=== PATIENT | male | born 1950 | race Caucasian/White ===

== ENCOUNTER → 2017-07-20 | Outpatient (CLI) | payer OTHER ==
[2016-06-30 11:28] VITALS: BP 133/67
== END ==
LOC: LAB 09:31
PROVIDERS: ATTEND Internal Medicine Gastroenterology
DX: K64.0 First degree hemorrhoids (principal)
CPT/HCPCS: 82270

== ENCOUNTER → 2017-10-03 | Outpatient (CLI) | payer OTHER ==
[2016-06-30 11:28] VITALS: BP 133/67
--- NOTE | 2017-10-03 12:17 | RAD ---
Examination: Chest, PA and lateral views History: SOB, COPD Comparison reference 03/19/2016. Findings: Continued normal heart size with clear lungs and pleural spaces. There is a new twin lead p acemaker. No definite CHF, neoplasm or pneumonia. Impression: No acute disease. Interval pacemaker insertion. Reported By:
== END ==
LOC: RAD 11:41
PROVIDERS: ATTEND Internal Medicine Pulmonary Disease
DX: J44.1 Chronic obstructive pulmonary disease with (acute) exacerbation (principal); Z95.0 Presence of cardiac pacemaker
CPT/HCPCS: 71020

== ENCOUNTER 2022-11-21 19:24 | Inpatient (IN) ==
--- NOTE | 2022-11-21 20:03 | EKG ---
Test Reason : sob Blood Pressure : */* mmHG Vent. Rate : 82 BPM Atrial Rate : 82 BPM P-R Int : 232 ms QRS Dur : 76 ms QT Int : 384 ms P-R-T Axes : 84 -48 38 degrees QTc Int : 448 ms Sinus rhythm with 1st degree AV block with occasional premature ventricular complexes Left axis deviation Abnormal ECG No previous ECGs available Right bundle branch block Confirmed by Kristian Garcia ([id number]) on 11/24/2022 8:18:45 AM Referred By: Confirmed By: Kristian Garcia
[2022-11-21 20:06] LABS: BASOPHILS % (AUTO) 0.2 % (0.2-1.0); EOSINOPHILS % (AUTO) 0.1 % (0.9-2.9); HEMATOCRIT 40.2 % (42.0-54.0); HEMOGLOBIN 13.7 g/dL (13.5-18.0); LYMPHOCYTES # (AUTO) 1.5 X10^3/uL (1.3-2.9); LYMPHOCYTES % (AUTO) 6.7 % (21.0-51.0); MEAN CORPUSCULAR HGB CONC 34.1 g/dL (33.0-35.0); MEAN CORPUSCULAR VOLUME 90.8 fL (80.0-100.0); MEAN PLATELET VOLUME 9.6 fL (7.4-11.0); MONOCYTES # (AUTO) 2.3 x10^3/uL (0.3-0.8); MONOCYTES % (AUTO) 10.1 % (0.0-13.0); NEUTROPHILS % (AUTO) 82.9 % (42.0-75.0); RED BLOOD COUNT 4.43 X10^6/uL (4.7-6.0); RED CELL DISTRIBUTION WIDTH 14.2 % (11.6-16.5); WHITE BLOOD COUNT 22.9 X10^3/uL (3.6-10.0)
--- NOTE | 2022-11-21 20:06 | DR.SOBA ---
HPI Time Seen Time Seen by Provider: 11/21/22 20:04 Primary Care Physician Primary Care Physician: Dr. Calderon Complaints Chief Complaint:: Pt brought into the ER in a wheelchair by his . pt states he think he has pneumonia and he "cant hardly breath." pt states he has had some shortness of breath and soreness when he breaths x3 days. pt on 2L NC via oxygen tank and O2 saturation 88%. Self Treatment fo Chief Complaint: pt takes albuterol and Budesonide at home COVID-19 Coronavirus risk:travel/contact w/high risk person: No Has patient experienced Coronavirus symptoms: Yes Coronavirus symptoms experienced: Shortness of Breath Source History Provided: Patient and Family Member Mode of Arrival Mode of Arrival: Wheelchair Timing Onset of Chief Complaint: 11/18/22 PMH PMH Past Medical History: Yes Past Medical History: COPD, Dyslipidemia, Hypertension and DE Past Surgical History: Yes Past Surgical History Comment: pace maker and defiltrialtor, hernia repair Family History History of Family Medical Conditions: Yes Family Medical History: DE Social History Alcohol Use: None Do you use any recreational Drugs:: No Lives With: Spouse Lives Where: Home Travel Risk Coronavirus risk:travel/contact w/high risk person: No Has patient experienced Coronavirus symptoms: Yes Coronavirus symptoms experienced: Shortness of Breath Infectious screening Have you traveled outside the country in the last 6 months?: No Isolation: Standard PE Vital Signs Vitals: Temperature 98.0 F Pulse Rate 78 Respiratory Rate 26 Blood Pressure 116/55 O2 Sat by Pulse Oximetry 92 ROR Labs Reviewed Result Diagrams: 11/23/22 05:41 11/23/22 05:41 Laboratory: WBC 22.9 X10^3/uL (3.6-10.0) H 11/21/22 20:00 RBC 4.43 X10^6/uL (4.7-6.0) L 11/21/22 20:00 Hgb 13.7 g/dL (13.5-18.0) 11/21/22 20:00 Hct 40.2 % (42.0-54.0) L 11/21/22 20:00 MCV 90.8 fL (80.0-100.0) 11/21/22 20:00 MCH 31.0 pg (27.0-34.0) 11/21/22 20:00 MCHC 34.1 g/dL (33.0-35.0) 11/21/22 20:00 RDW 14.2 % (11.6-16.5) 11/21/22 20:00 Plt Count 155 X10^3/uL (150.0-450.0) 11/21/22 20:00 Plt Count Comment Adequate (ADEQUATE) 11/21/22 20:00 MPV 9.6 fL (7.4-11.0) 11/21/22 20:00 Neut % (Auto) 82.9 % (42.0-75.0) H 11/21/22 20:00 Lymph % (Auto) 6.7 % (21.0-51.0) L 11/21/22 20:00 [place] % (Auto) 10.1 % (0.0-13.0) 11/21/22 20:00 Eos % (Auto) 0.1 % (0.9-2.9) L 11/21/22 20:00 Baso % (Auto) 0.2 % (0.2-1.0) 11/21/22 20:00 Neut # (Auto) 19.0 x10^3/uL (2.2-4.8) H 11/21/22 20:00 Lymph # (Auto) 1.5 X10^3/uL (1.3-2.9) 11/21/22 20:00 [place] # (Auto) 2.3 x10^3/uL (0.3-0.8) H 11/21/22 20:00 Eos # (Auto) 0.0 x10^3/uL (0.0-0.2) 11/21/22 20:00 Baso # (Auto) 0.0 X10^3/uL (0.0-0.1) 11/21/22 20:00 Absolute Nucleated RBC 0.0 /100WBC 11/21/22 20:00 Total Counted 100 11/21/22 20:00 Neutrophils % (Manual) 85 % (39-76) H 11/21/22 20:00 Lymphocytes % (Manual) 9 % (13-43) L 11/21/22 20:00 Monocytes % (Manual) 6 % (4-9) 11/21/22 20:00 Plt Morphology Comment Normal (NORMAL) 11/21/22 20:00 RBC Morphology Normal (NORMAL) 11/21/22 20:00 Sample Site Lr 11/21/22 20:11 ABG pH 7.510 (7.35-7.45) H 11/21/22 20:11 ABG pCO2 34.0 mmHg (35.0-45.0) L 11/21/22 20:11 ABG pO2 53.0 mmHg (80.0-100.0) L 11/21/22 20:11 ABG HCO3 27.1 mmol/L (22-26) H 11/21/22 20:11 ABG O2 Saturation 90.0 % (90-100) 11/21/22 20:11 ABG Base Excess 4.2 mmol/L (-2.0-2.0) H 11/21/22 20:11 Taurus Test Pos 11/21/22 20:11 A-a Gradient 104.0 mmHg 11/21/22 20:11 FiO2 28.0 11/21/22 20:11 Blood Gas Comments Ney well ae 11/21/22 20:11 Sodium 136 mmol/L (136-145) 11/21/22 20:00 Corrected Sodium TNP 11/21/22 20:00 Potassium 3.8 mmol/L (3.5-5.1) 11/21/22 20:00 Chloride 100 mmol/L (98-107) 11/21/22 20:00 Carbon Dioxide 30.6 mmol/L (21-32) 11/21/22 20:00 BUN 19 mg/dL (7-18) H 11/21/22 20:00 Creatinine 1.16 mg/dL (0.70-1.30) 11/21/22 20:00 Est GFR (MDRD) Af Amer > 60 (>60) 11/21/22 20:00 Est GFR (MDRD) Non-Af > 60 (>60) 11/21/22 20:00 Glucose 97 mg/dL (65-99) 11/21/22 20:00 Calcium 8.3 mg/dL (8.5-10.1) L 11/21/22 20:00 Corrected Calcium 9.3 mg/dL (8.5-10.1) 11/21/22 20:00 Total Bilirubin 1.20 mg/dL (0.2-1.0) H 11/21/22 20:00 AST 17 Units/L (15-37) 11/21/22 20:00 ALT 21 Units/L (12-78) 11/21/22 20:00 Alkaline Phosphatase 62 Units/L (46-116) 11/21/22 20:00 Creatine Kinase 60 Units/L (39-308) 11/21/22 20:00 Troponin I High Sens 9.3 ng/L (4.0-60.0) 11/21/22 20:00 Total Protein 6.0 g/dL (6.4-8.2) L 11/21/22 20:00 Albumin 2.8 g/dL (3.4-5.0) L 11/21/22 20:00 Globulin 3.2 g/dL (2.5-4.5) 11/21/22 20:00 Albumin/Globulin Ratio 0.9 Ratio (1.1-2.1) L 11/21/22 20:00 SARS-CoV-2 (PCR) Negative (NEGATIVE) 11/21/22 19:50 Influenza Type A (PCR) Negative (NEGATIVE) 11/21/22 19:50 Influenza Type B (PCR) Negative (NEGATIVE) 11/21/22 19:50 RSV (PCR) Negative (NEGATIVE) 11/21/22 19:50 Opioid Opioid Risk Tool Age ([employer] box if 16-45): No History of Preadolescent Sexual Abuse: No Total: 0 Total Score Risk Category: Low Risk Copyright: Quincy GALVEZ predicting aberrant behaviors Discharge Plan Discharge Plan Patient Disposition: 09 ADMITTED INPATIENT Condition: Stable
[2022-11-21 20:16] LABS: ABG ALLEN TEST POS; ABG BASE EXCESS 4.2 mmol/L (-2.0-2.0); ABG HCO3 27.1 mmol/L (22-26)
[2022-11-21 20:20] LABS: ALANINE AMINOTRANSFERASE 21 Units/L (12-78); ALBUMIN 2.8 g/dL (3.4-5.0); ALKALINE PHOSPHATASE 62 Units/L (46-116); ASPARTATE AMINO TRANSFERASE 17 Units/L (15-37); BLOOD UREA NITROGEN 19 mg/dL (7-18); CALCIUM 8.3 mg/dL (8.5-10.1); CARBON DIOXIDE 30.6 mmol/L (21-32); CHLORIDE 100 mmol/L (98-107); COR CA(FOR HYPOALB) 9.3 mg/dL (8.5-10.1); CREATINE KINASE 60 Units/L (39-308); CREATININE 1.16 mg/dL (0.70-1.30); SODIUM 136 mmol/L (136-145); eGFR NON BLACK RACES > 60 (>60)
[2022-11-21] MEDS ORDERED: DUONEB 0.5 MG/3 MG (3 mL) NEB ONE ×3 (20:30→23:07)
--- NOTE | 2022-11-21 20:30 | RAD ---
HISTORYstates he thinks he has pneumonia and he "cant hardly breath", has had some sob and soreness when he breaths x3 days. pt on 2L NC via oxygen tank and O2 saturation 88%.STUDYCHEST, 1 VIEWCOMPARISONNone.TECHNIQUEA single frontal view of the chest was obtained.FINDINGSThere is a permanent pacemaker overlying the left chest wall with its proximal lead in the right atrium and distal lead in the right ventricle. The heart is normal in size. There is a right lower lobe interstitial infiltrate with reticulonodular changes.. There is no effusion. There is no pneumothorax. The osseous structures are intact.IMPRESSIONRight lower lobe interstitial infiltrate.Permanent pacemaker in situElectronically signed by: Trinidad Olivier (Nov 21, 2022 20:29:18)
[2022-11-21 20:31] LABS: PLATELET MORPHOLOGY COMMENT NORMAL (NORMAL)
[2022-11-21] MEDS ORDERED: SOLU-Medrol 125 MG VIAL ONE (20:31)
[2022-11-21] MEDS ORDERED: SOLU-Medrol 125 MG VIAL IVP ONE (20:41)
[2022-11-21] MEDS ORDERED: ROCEPHIN VIAL 1 GRAM 1 G in NS 100 ML IV 100 ML IV ONE (21:11)
[2022-11-21] MEDS ORDERED: NS 100 ML IV 100 ML ONE (21:12)
[2022-11-21] MEDS ORDERED: ROCEPHIN VIAL 1 GRAM ONE (21:12)
[2022-11-21] MEDS ORDERED: NS 1/2 1,000 ML IV 1,000 ML IV ONE ×2 (21:26)
[2022-11-21] MEDS: NS 1/2 1,000 ML IV 1,000 ML IV SCH (23:31)
[2022-11-22] MEDS ORDERED: DUONEB 0.5 MG/3 MG (3 mL) NEB SCH
[2022-11-22] MEDS: DUONEB 0.5 MG/3 MG (3 mL) NEB SCH ×6 (00:05→21:00)
[2022-11-22 06:09] LABS: BASOPHILS % (AUTO) 0.1 % (0.2-1.0); HEMATOCRIT 38.7 % (42.0-54.0); HEMOGLOBIN 13.2 g/dL (13.5-18.0); LYMPHOCYTES # (AUTO) 0.4 X10^3/uL (1.3-2.9); LYMPHOCYTES % (AUTO) 1.9 % (21.0-51.0); MEAN CORPUSCULAR HEMOGLOBIN 30.7 pg (27.0-34.0); MEAN CORPUSCULAR HGB CONC 34.1 g/dL (33.0-35.0); MEAN PLATELET VOLUME 10.2 fL (7.4-11.0); MONOCYTES # (AUTO) 0.4 x10^3/uL (0.3-0.8); MONOCYTES % (AUTO) 1.7 % (0.0-13.0); NEUTROPHILS # (AUTO) 20.5 x10^3/uL (2.2-4.8); NEUTROPHILS % (AUTO) 96.3 % (42.0-75.0); RED CELL DISTRIBUTION WIDTH 14.3 % (11.6-16.5); WHITE BLOOD COUNT 21.3 X10^3/uL (3.6-10.0)
[2022-11-22 06:13] LABS: ALANINE AMINOTRANSFERASE 19 Units/L (12-78); ALBUMIN 2.6 g/dL (3.4-5.0); ALKALINE PHOSPHATASE 62 Units/L (46-116); ASPARTATE AMINO TRANSFERASE 18 Units/L (15-37); BLOOD UREA NITROGEN 18 mg/dL (7-18); CALCIUM 8.6 mg/dL (8.5-10.1); CARBON DIOXIDE 27.1 mmol/L (21-32); CHLORIDE 100 mmol/L (98-107); COR CA(FOR HYPOALB) 9.7 mg/dL (8.5-10.1); COR NA(FOR HYPERGLY) 138 mmol/L (136-145); CREATININE 1.06 mg/dL (0.70-1.30); SODIUM 137 mmol/L (136-145); TOTAL PROTEIN 6.2 g/dL (6.4-8.2); eGFR NON BLACK RACES > 60 (>60)
[2022-11-22 07:36] LABS: PLATELET MORPHOLOGY COMMENT NORMAL (NORMAL)
[2022-11-22] MEDS: PULMICORT NEB TX 0.5 MG NEB SCH ×2 (08:25→21:00)
[2022-11-22] MEDS: VSL#3 PO SCH (08:36)
[2022-11-22] MEDS: ROBITUSSIN DM PO SCH ×4 (08:36→20:30)
[2022-11-22] MEDS ORDERED: LOVENOX INJ 40 MG SYR SC SCH (09:00)
[2022-11-22] MEDS: ALDACTONE TAB 25 MG PO SCH (10:55)
[2022-11-22] MEDS: ASPIRIN EC 81 MG PO SCH (10:55)
[2022-11-22] MEDS: CORDARONE TAB 200 MG PO SCH (10:55)
[2022-11-22] MEDS: ENTRESTO 24/26 MG TABLET PO SCH ×2 (10:56→20:32)
[2022-11-22] MEDS: COREG TAB 25 MG PO SCH ×2 (10:56→20:32)
[2022-11-22] MEDS: LEVAQUIN PREMIX IV 500 MG 500 MG/100 ML BAG IV SCH (10:57)
[2022-11-22] MEDS: LASIX PO SCH (10:57)
[2022-11-22] MEDS ORDERED: LOVENOX INJ 30 MG SYR SC SCH (11:00)
[2022-11-22] MEDS ORDERED: FORTAZ or TAZICEF VIAL INJ 1 G in NS 100 ML IV + SPIKE MINIBAG* 100 ML IV SCH (11:00)
[2022-11-22] MEDS ORDERED: PREDNISONE TAB 20 MG PO SCH (11:00)
[2022-11-22] MEDS ORDERED: STERILE WATER IRRIGATION IR ONE (12:22)
[2022-11-22] MEDS: FORTAZ or TAZICEF VIAL INJ 1 G in NS 100 ML IV 100 ML IV SCH ×2 (13:30→21:02)
[2022-11-22] MEDS: NS 1/2 1,000 ML IV 1,000 ML IV SCH (13:30)
--- NOTE | 2022-11-22 19:38 | DR.H&P ---
H&P - History & Physical for Day of: H&P Date: 11/21/22 - Chief Complaint Chief Complaint: SHORTNESS OF BREATH - History of Present Illness History of Present Illness: IS A 72 YEAR OLD PATIENT OF OURS. HE PRESENTED TO THE ER WITH COMPLAINTS OF SHORTNESS OF BREATH AND CHEST DISCOMFORT UPON INSPIRATION. HE REPORTS THAT HIS OXYGEN SATURATIONS WERE 88% AT HOME WHILE ON OXYGEN VIA NASAL CANNULA AT 2 LITERS/MINUTE. HIS SPOUSE REPORTS THAT HE HAS BEEN USING ALBUTEROL AND BUDESONIDE NEBULIZER TREATMENTS WITHOUT SIGNIFICANT IMPROVEMENT IN SYMPTOMS. HIS PMH INCLUDES: COPD, DYSLIPIDEMIA, HTN, HYPOTHYROIDISM, GERD, HI, PACEMAKER/DEFIBRILLATOR, AND HERNIA REPAIR. ON ARRIVAL TO THE ER, HIS VITALS WERE 98.0-84-26-88%(NC@2)-116/55. LABS WERE OBTAINED. WBC 22.9, RBC 4.43, HGB 13.7, HCT 40.2, PLT COUNT 155, SODIUM 136, POTASSIUM 3.8, CHLORIDE 100, CARBON DIOXIDE 30.6, BUN 19, CREATININE 1.16, GLUCOSE 97, CALCIUM 8.3, TOTAL BILI 1.20, AST 17, ALT 21, ALK PHOS 62, CREATINE KINASE 60, TROPONIN 9.3, TOTAL PROTEIN 6.0, ALBUMIN 2.8. AN ABG WAS OBTAINED. PH 7.510, PC02 34, P02 53, HC03 27.1, 02 SAT 90, BASE EXCESS 4.2, FI02 28.0. COVID, INFLUENZA, AND RSV NEGATIVE. A CHEST XRAY WAS OBTAINED AND REVEALED: Right lower lobe interstitial infiltrate. Permanent pacemaker in situ. EKG REVEALED: Sinus rhythm with 1st degree AV block with occasional premature ventricular complexes. Left axis deviation. HR 82 bpm. IN THE ER, HE WAS GIVEN A DUONEB X 1, SOLU-MEDROL 125MG IV X 1, ROCEPHIN 1G IV X 1, AND LOVENOX 40MG SC X 1 DOSE. HE WAS ADMITTED TO THE HOSPITAL INPATIENT STATUS FOR TREATMENT OF RIGHT LOWER LOBE PNEUMONIA AND COPD EXACERBATION. HE WAS STARTED ON NORMAL SALINE AT KVO, FORTAZ 1G IV Q8H, LEVAQUIN 500MG IV DAILY DUONEBS Q4H, PULMICORT NEBS BID, LOVENOX 30MG SC BID, PROBIOTICS DAILY, AND HIS HOME MEDICATIONS WERE RESUMED. HOME MEDICATIONS INCLUDE: AMIODARONE, ECOTRIN, BUSPIRONE, CARVEDILOL, LASIX, ROBITUSSIN DM, SYNTHROID, PRILOSEC, PRAVACHOL, PREDNISONE, ALDACTONE, AND ENTRESTO. HIS FAMILY IS INSTRUCTED TO BRING HIS CPAP FROM HOME. OTHERWISE, WE PLAN TO FOLLOW-UP WITH AM LABS AND CONTINUE TO MONITOR. TIME SPENT ON CLINICAL ASSESSMENT, REVIEWING LABS AND IMAGING, DECISION MAKING, AND DOCUMENTATION GREATER THAN 75 MINUTES. - Past Medical History Past Medical History: COPD, Dyslipidemia, GERD, Hypertension, HI - Past Surgical History Surgical History: Other Additional Surgical History: PACEMAKER/DEFIBRILLATOR, HERNIA REPAIR - Family History Family Medical History: HI - Social History Does patient currently use any type of tobacco product: No Have you used tobacco products in the last 12 months: No Type of Tobacco Use: None Does any household member use tobacco: No Alcohol Use: None Drug Use: None - Medications Home Medications: No Known Drug Allergies Allergy (Verified 05/28/20 11:05) CONTINUE taking the following medications amiodarone 200 mg tablet 200 mg PO DAILY 11/21/22 [History] aspirin 81 mg capsule 81 mg PO QDAY 11/21/22 [History] buspirone 7.5 mg tablet 7.5 mg PO BID 11/21/22 [History] carvedilol 25 mg tablet 25 mg PO BID 11/21/22 [History] furosemide 20 mg tablet 20 mg PO DAILY 11/21/22 [History] prednisone 20 mg tablet 50 mg PO DAILY 11/21/22 [History] sacubitril 97 mg-valsartan 103 mg tablet 0.5 tab PO BID 11/21/22 [History] spironolactone 25 mg tablet 25 mg PO DAILY 11/21/22 [History] levothyroxine 88 mcg tablet (Synthroid) 88 mcg PO DAILY 11/22/22 [History] - Review of Systems Constitutional: Weakness Eyes: No Symptoms Reported ENT: No Symptoms Reported Respiratory: Shortness of Breath, SOB with Excertion, Wheezing Cardiovascular: No Symptoms Reported Gastrointestinal: No Symptoms Reported Genitourinary: No Symptoms Reported Musculoskeletal: No Symptoms Reported Skin: No Symptoms Reported Neurological: No Symptoms Reported - Physical Exam Vital Signs: Temperature 97.8 F Pulse Rate [Left Radial] 86 Pulse Rate 73 Respiratory Rate 20 Blood Pressure [Right Arm] 120/79 Blood Pressure [Left Arm] 110/66 Blood Pressure 116/55 O2 Sat by Pulse Oximetry 91 Oriented: Normal Eyes: Normal Ear: Normal Nose: Normal Throat: Normal Respiratory: Wheezes Throughout Cardiovascular: Normal : Normal Auscultation: Bowel Sounds: Normal Palpation: Normal Tenderness: Normal Skin: Normal Musculoskeletal: Normal Psychiatric: Normal Mood Description: Calm Affect: Normal Speech Pattern: Clear - Assessment/Plan (1) Pneumonia Qualifiers: Pneumonia type: due to unspecified organism Laterality: right Lung location: lower lobe of lung Qualified Code(s): J18.9 - Pneumonia, unspecified organism Status: Acute Plan: ADMIT, SUPPLEMENTAL OXYGEN, NORMAL SALINE AT KVO, FORTAZ 1G IV Q8H, LEVAQUIN 500MG IV DAILY DUONEBS Q4H, PULMICORT NEBS BID, LOVENOX 30MG SC BID, PROBIOTICS DAILY, AND HIS HOME MEDICATIONS WERE RESUMED. (2) COPD exacerbation Status: Acute (3) HTN (hypertension) Qualifiers: Hypertension type: primary hypertension Qualified Code(s): I10 - Essential (primary) hypertension Status: Chronic (4) GERD (gastroesophageal reflux disease) Qualifiers: Esophagitis presence: esophagitis presence not specified Qualified Code(s): K21.9 - Gastro-esophageal reflux disease without esophagitis Status: Chronic - Allergies Allergies/Adverse Reactions: Allergies Allergy/AdvReac Type Severity Reaction Status Date / Time No Known Drug Allergies Allergy Verified 05/28/20 11:05
[2022-11-22] MEDS: LOVENOX INJ 30 MG SYR SC SCH (20:32)
[2022-11-22] MEDS: PRAVACHOL PO SCH (20:34)
[2022-11-22] MEDS ORDERED: BUSPAR PO SCH (21:00)
[2022-11-22] MEDS ORDERED: ROCEPHIN 1 GRAM IV PREMIX 1 G/50 ML IV.SOLN. IV SCH (21:00)
[2022-11-22] MEDS: BUSPAR PO SCH (21:01)
[2022-11-23] MEDS: DUONEB 0.5 MG/3 MG (3 mL) NEB SCH ×6 (00:45→20:50)
[2022-11-23] MEDS ORDERED: NS 1/2 1,000 ML IV 1,000 ML IV ONE (05:03)
--- NOTE | 2022-11-23 05:17 | RAD ---
HISTORYSOB; PNEUMONIA Relevant Clinical InformationSTUDYCHEST, 1 [id number] trachea is midline. Permanent pacing device. The cardiac silhouette is unremarkable. Mild bibasilar subsegmental atelectasis and/or infiltrates. The upper lung fournier are clear. No pneumothorax. The bony thorax is unremarkable.IMPRESSIONMild bibasilar subsegmental atelectasis and/or infiltrates. No significant change from previous 11/21/2022.Electronically signed by: Marcelo García (Nov 23, 2022 05:15:23)
[2022-11-23] MEDS: FORTAZ or TAZICEF VIAL INJ 1 G in NS 100 ML IV 100 ML IV SCH ×3 (05:59→21:22)
[2022-11-23] MEDS: NS 1/2 1,000 ML IV 1,000 ML IV SCH (05:59)
[2022-11-23] MEDS: SYNTHROID 88 mcg TAB PO SCH (06:13)
[2022-11-23 06:18] LABS: BASOPHILS # (AUTO) 0.1 X10^3/uL (0.0-0.1); BASOPHILS % (AUTO) 0.3 % (0.2-1.0); HEMATOCRIT 36.5 % (42.0-54.0); HEMOGLOBIN 12.5 g/dL (13.5-18.0); LYMPHOCYTES # (AUTO) 0.5 X10^3/uL (1.3-2.9); LYMPHOCYTES % (AUTO) 2.2 % (21.0-51.0); MEAN CORPUSCULAR HEMOGLOBIN 30.9 pg (27.0-34.0); MEAN CORPUSCULAR HGB CONC 34.2 g/dL (33.0-35.0); MEAN CORPUSCULAR VOLUME 90.5 fL (80.0-100.0); MEAN PLATELET VOLUME 10.8 fL (7.4-11.0); MONOCYTES # (AUTO) 0.8 x10^3/uL (0.3-0.8); MONOCYTES % (AUTO) 3.9 % (0.0-13.0); NEUTROPHILS # (AUTO) 19.8 x10^3/uL (2.2-4.8); NEUTROPHILS % (AUTO) 93.6 % (42.0-75.0); RED BLOOD COUNT 4.03 X10^6/uL (4.7-6.0); RED CELL DISTRIBUTION WIDTH 14.2 % (11.6-16.5); WHITE BLOOD COUNT 21.1 X10^3/uL (3.6-10.0)
[2022-11-23 06:45] LABS: ALANINE AMINOTRANSFERASE 25 Units/L (12-78); ALBUMIN 2.4 g/dL (3.4-5.0); ALKALINE PHOSPHATASE 67 Units/L (46-116); ASPARTATE AMINO TRANSFERASE 19 Units/L (15-37); BLOOD UREA NITROGEN 22 mg/dL (7-18); CALCIUM 8.4 mg/dL (8.5-10.1); CARBON DIOXIDE 27.9 mmol/L (21-32); CHLORIDE 102 mmol/L (98-107); COR CA(FOR HYPOALB) 9.7 mg/dL (8.5-10.1); COR NA(FOR HYPERGLY) 140 mmol/L (136-145); CREATININE 1.19 mg/dL (0.70-1.30); SODIUM 138 mmol/L (136-145); TOTAL PROTEIN 5.9 g/dL (6.4-8.2); eGFR NON BLACK RACES > 60 (>60)
[2022-11-23 07:08] LABS: BAND NEUTROPHILS % 5 % (0-10); METAMYELOCYTES % 1; PLATELET MORPHOLOGY COMMENT NORMAL (NORMAL)
[2022-11-23] MEDS: PULMICORT NEB TX 0.5 MG NEB SCH ×2 (09:15→20:50)
[2022-11-23] MEDS: ENTRESTO 24/26 MG TABLET PO SCH ×2 (09:19→21:26)
[2022-11-23] MEDS: LEVAQUIN PREMIX IV 500 MG 500 MG/100 ML BAG IV SCH (09:19)
[2022-11-23] MEDS: ASPIRIN EC 81 MG PO SCH (09:21)
[2022-11-23] MEDS: ROBITUSSIN DM PO SCH ×4 (09:21→21:23)
[2022-11-23] MEDS: LASIX PO SCH (09:21)
[2022-11-23] MEDS: COREG TAB 25 MG PO SCH ×2 (09:21→21:26)
[2022-11-23] MEDS: ALDACTONE TAB 25 MG PO SCH (09:21)
[2022-11-23] MEDS: PriLOSEC PO SCH ×3 (09:22→09:23)
[2022-11-23] MEDS: LOVENOX INJ 30 MG SYR SC SCH ×2 (09:22→21:23)
[2022-11-23] MEDS: VSL#3 PO SCH (09:22)
[2022-11-23] MEDS: BUSPAR PO SCH ×2 (09:23→21:25)
[2022-11-23] MEDS: CORDARONE TAB 200 MG PO SCH (09:28)
[2022-11-23] MEDS: SOLU-Medrol 125 MG VIAL IVP SCH ×2 (10:56→13:52)
--- NOTE | 2022-11-23 11:14 | PCM.PROG ---
Progress Note - Progress Note for Day of Date of Exam: 11/23/22 - Subjective Subjective: IS CURRENTLY INPATIENT STATUS FOR TREATMENT OF RIGHT LOWER LOBE PNEUMONIA AND COPD EXACERBATION. HE HAS A PMH OF HTN, GERD, DYSLIPIDEMIA, HYPOTHYROIDISM. TODAY, HE IS ALERT AND ORIENTED, SITTING UP IN BED ON MORNING ROUNDS. HE CONTINUES TO COMPLAIN OF COUGH AND SHORTNESS OF BREATH. HE DENIES SIGNIFICANT IMPROVEMENT SINCE ADMISSION. ON EXAMINATION, HEART IS REGULAR IN RATE AND RHYTHM. BILATERAL LUNGS ARE NOTED WITH RHONCHI AND EXPIRATORY WHEEZES THROUGHOUT. ABDOMEN IS DISTENDED, SOFT, AND NON-TENDER WITH NORMAL BOWEL SOUNDS NOTED IN ALL QUADRANTS. NO UPPER OR LOWER EXTREMITY EDEMA NOTED. HIS VITALS THIS MORNING WERE: 97.6-80-22-94%-146/70. LABS WERE OBTAINED. WBC 21.1, RBC 4.03, HGB 12.5, HCT 36.5, PLT COUNT 144, SODIUM 138, POTASSIUM 4.1, CHLORIDE 102, BUN 22, CREATININE 1.19, GLUCOSE 170, CALCIUM 8.4, AST 19, ALT 25, ALK PHOS 67, TOTAL PROTEIN 5.9, ALBUMIN 2.4. BLOOD AND SPUTUM CULTURES ARE PENDING. A CHEST XRAY WAS OBTAINED THIS MORNING AND REVEALED: The trachea is midline. Permanent pacing device. The cardiac silhouette is unremarkable. Mild bibasilar subsegmental atelectasis and/or infiltrates. The upper lung fournier are clear. No pneumothorax. The bony thorax is unremarkable. HE IS CURRENTLY RECEIVING NORMAL SALINE AT KVO, FORTAZ 1G IV Q8H, LEVAQUIN 500MG IV DAILY DUONEBS Q4H, PULMICORT NEBS BID, LOVENOX 30MG SC BID, PROBIOTICS DAILY, AND HIS HOME MEDICAT IONS WERE RESUMED. HOME MEDICATIONS INCLUDE: AMIODARONE, ECOTRIN, BUSPIRONE, CARVEDILOL, LASIX, ROBITUSSIN DM, SYNTHROID, PRILOSEC, PRAVACHOL, PREDNISONE, ALDACTONE, AND ENTRESTO. TODAY, WE WILL DISCONTINUE THE PREDNISONE. WE WILL ADD SOLU-MEDROL 125MG IV Q8H. WE WILL OBTAIN A CT OF THE CHEST WITH CONTRAST TO RULE OUT SARCOID, MALIGNANCY, OR ANY OTHER LUNG CHANGES. OTHERWISE, WE WILL FOLLOW-UP WITH AM LABS AND CHEST XRAY AND CONTINUE TO MONITOR. TIME SPENT ON CLINICAL ASSESSMENT, REVIWING LABS AND IMAGING, DECISION MAKING, AND DOCUMENTATION GREATER THAN 45 MINUTES. - Past Medical Family Social History Past Med/Fam/Surg Hx: No changes since H&P Allergies: Allergies No Known Drug Allergies Allergy (Verified 05/28/20 11:05) - Review of Systems ROS: No change since H&P - Vital Signs and I&O's Vital Signs: Temperature 97.6 F Pulse Rate [Left Radial] 80 Pulse Rate 91 Respiratory Rate 22 Blood Pressure [Right Arm] 120/79 Blood Pressure [Left Arm] 146/70 Blood Pressure 116/55 O2 Sat by Pulse Oximetry 91 Intake and Output: Intake & Output 11/20/22 11/21/22 11/22/22 11/23/22 11:59 11:59 11:59 11:59 Intake Total 810 / 810 2249 / 2249 Balance 810 / 810 2249 / 2249 - Physical Exam Oriented: Normal Eyes: Normal Ear: Normal Nose: Normal Throat: Normal Cardiovascular: Normal : Normal Auscultation: Bowel Sounds: Normal Palpation: Normal Tenderness: Normal Skin: Normal Musculoskeletal: Normal Psychiatric: Normal Mood Description: Calm Affect: Normal Speech Pattern: Clear, Appropriate - Laboratory and Diagnostics Result Diagrams: 11/23/22 05:41 11/23/22 05:41 Labs: 11/21/22 23:50 Sputum - Expectorated Sputum Sputum Culture - Preliminary 11/21/22 23:50 Sputum - Expectorated Sputum - Final Laboratory WBC 21.1 X10^3/uL (3.6-10.0) H 11/23/22 05:41 RBC 4.03 X10^6/uL (4.7-6.0) L 11/23/22 05:41 Hgb 12.5 g/dL (13.5-18.0) L 11/23/22 05:41 Hct 36.5 % (42.0-54.0) L 11/23/22 05:41 MCV 90.5 fL (80.0-100.0) 11/23/22 05:41 MCH 30.9 pg (27.0-34.0) 11/23/22 05:41 MCHC 34.2 g/dL (33.0-35.0) 11/23/22 05:41 RDW 14.2 % (11.6-16.5) 11/23/22 05:41 Plt Count 144 X10^3/uL (150.0-450.0) L 11/23/22 05:41 Plt Count Comment Decreased (ADEQUATE) 11/23/22 05:41 MPV 10.8 fL (7.4-11.0) 11/23/22 05:41 Neut % (Auto) 93.6 % (42.0-75.0) H 11/23/22 05:41 Lymph % (Auto) 2.2 % (21.0-51.0) L 11/23/22 05:41 [place] % (Auto) 3.9 % (0.0-13.0) 11/23/22 05:41 Eos % (Auto) 0.0 % (0.9-2.9) L 11/23/22 05:41 Baso % (Auto) 0.3 % (0.2-1.0) 11/23/22 05:41 Neut # (Auto) 19.8 x10^3/uL (2.2-4.8) H 11/23/22 05:41 Lymph # (Auto) 0.5 X10^3/uL (1.3-2.9) L 11/23/22 05:41 [place] # (Auto) 0.8 x10^3/uL (0.3-0.8) 11/23/22 05:41 Eos # (Auto) 0.0 x10^3/uL (0.0-0.2) 11/23/22 05:41 Baso # (Auto) 0.1 X10^3/uL (0.0-0.1) 11/23/22 05:41 Absolute Nucleated RBC 0.0 /100WBC 11/23/22 05:41 Total Counted 100 11/23/22 05:41 Neutrophils % (Manual) 83 % (39-76) H 11/23/22 05:41 Band Neutrophils % 5 % (0-10) 11/23/22 05:41 Lymphocytes % (Manual) 2 % (13-43) L 11/23/22 05:41 Monocytes % (Manual) 9 % (4-9) 11/23/22 05:41 Metamyelocytes % 1 11/23/22 05:41 Plt Morphology Comment Normal (NORMAL) 11/23/22 05:41 RBC Morphology Normal (NORMAL) 11/23/22 05:41 Sample Site Lr 11/21/22 20:11 ABG pH 7.510 (7.35-7.45) H 11/21/22 20:11 ABG pCO2 34.0 mmHg (35.0-45.0) L 11/21/22 20:11 ABG pO2 53.0 mmHg (80.0-100.0) L 11/21/22 20:11 ABG HCO3 27.1 mmol/L (22-26) H 11/21/22 20:11 ABG O2 Saturation 90.0 % (90-100) 11/21/22 20:11 ABG Base Excess 4.2 mmol/L (-2.0-2.0) H 11/21/22 20:11 Taurus Test Pos 11/21/22 20:11 A-a Gradient 104.0 mmHg 11/21/22 20:11 FiO2 28.0 11/21/22 20:11 Blood Gas Comments Ney well ae 11/21/22 20:11 Sodium 138 mmol/L (136-145) 11/23/22 05:41 Corrected Sodium 140 mmol/L (136-145) 11/23/22 05:41 Potassium 4.1 mmol/L (3.5-5.1) 11/23/22 05:41 Chloride 102 mmol/L (98-107) 11/23/22 05:41 Carbon Dioxide 27.9 mmol/L (21-32) 11/23/22 05:41 BUN 22 mg/dL (7-18) H 11/23/22 05:41 Creatinine 1.19 mg/dL (0.70-1.30) 11/23/22 05:41 Est GFR (MDRD) Af Amer > 60 (>60) 11/23/22 05:41 Est GFR (MDRD) Non-Af > 60 (>60) 11/23/22 05:41 Glucose 170 mg/dL (65-99) H 11/23/22 05:41 Calcium 8.4 mg/dL (8.5-10.1) L 11/23/22 05:41 Corrected Calcium 9.7 mg/dL (8.5-10.1) 11/23/22 05:41 Total Bilirubin 0.50 mg/dL (0.2-1.0) 11/23/22 05:41 AST 19 Units/L (15-37) 11/23/22 05:41 ALT 25 Units/L (12-78) 11/23/22 05:41 Alkaline Phosphatase 67 Units/L (46-116) 11/23/22 05:41 Creatine Kinase 60 Units/L (39-308) 11/21/22 20:00 Troponin I High Sens 9.3 ng/L (4.0-60.0) 11/21/22 20:00 Total Protein 5.9 g/dL (6.4-8.2) L 11/23/22 05:41 Albumin 2.4 g/dL (3.4-5.0) L 11/23/22 05:41 Globulin 3.5 g/dL (2.5-4.5) 11/23/22 05:41 Albumin/Globulin Ratio 0.7 Ratio (1.1-2.1) L 11/23/22 05:41 SARS-CoV-2 (PCR) Negative (NEGATIVE) 11/21/22 19:50 Influenza Type A (PCR) Negative (NEGATIVE) 11/21/22 19:50 Influenza Type B (PCR) Negative (NEGATIVE) 11/21/22 19:50 RSV (PCR) Negative (NEGATIVE) 11/21/22 19:50 - Plan (1) Pneumonia Status: Acute Qualifiers: Pneumonia type: due to unspecified organism Laterality: right Lung location: lower lobe of lung Qualified Code(s): J18.9 - Pneumonia, unspecified organism Plan: SUPPLEMENTAL OXYGEN, NORMAL SALINE AT KVO, FORTAZ 1G IV Q8H, LEVAQUIN 500MG IV DAILY, SOLU-MEDROL 125MG IV Q8H, DUONEBS Q4H, PULMICORT NEBS BID, LOVENOX 30MG SC BID, PROBIOTICS DAILY, AND HIS HOME MEDICATIONS WERE RESUMED. (2) COPD exacerbation Status: Acute (3) HTN (hypertension) Status: Chronic Qualifiers: Hypertension type: primary hypertension Qualified Code(s): I10 - Essential (primary) hypertension (4) GERD (gastroesophageal reflux disease) Status: Chronic Qualifiers: Esophagitis presence: esophagitis presence not specified Qualified Code(s): K21.9 - Gastro-esophageal reflux disease without esophagitis
--- NOTE | 2022-11-23 18:22 | CT ---
HISTORYSOB, COUGHSTUDYCHEST WITH CONCOMPARISONNoneTECHNIQUEMultiple CT axial images of the chest were obtained with IV contrast. Coronal and sagittal images were reconstructed. Dose reduction techniques included Automated Exposure Control (AEC) and adjustment of mA and kV.FINDINGSThe heart is normal in size. Atherosclerotic calcification is present in the coronary arteries.The pulmonary artery and aorta have a normal caliber. No mediastinal mass or significant lymphadenopathy.The thyroid has a normal size and configuration. No axillary mass or significant axillary lymphadenopathy is identified.There are focal areas of opacity in the lungs. This is a combination of nodular interstitial and linear opacity. Probably represents pneumonia and accounts for the changes seen on the recent chest radiograph. Since some of these findings are nodular, I recommend follow-up chest CT in 3-6 months.Trace bilateral effusions. No consolidation. No pneumothorax.There is a calcified gallstone. No inflammation around the gallbladder.Degenerative changes are present in the spine.IMPRESSION1. Findings consistent with bilateral predominantly basilar pneumonia2. CholelithiasisElectronically signed by: Jimmy Nieto (Nov 23, 2022 18:20:48)
[2022-11-23] MEDS: PRAVACHOL PO SCH (21:27)
[2022-11-24] MEDS: DUONEB 0.5 MG/3 MG (3 mL) NEB SCH ×6 (00:15→20:00)
[2022-11-24] MEDS: SOLU-Medrol 125 MG VIAL IVP SCH ×4 (02:12→21:09)
--- NOTE | 2022-11-24 05:09 | RAD ---
HISTORYPNEUMONIA, SOB Relevant Clinical InformationSTUDYCHEST, 1 [id number]/2023FINDINGSThe trachea is midline. Per to pacing device. The cardiac silhouette is unremarkable. Bibasilar subsegmental atelectasis and/or infiltrates. The bony thorax is unremarkable.IMPRESSIONStable portable chest.Electronically signed by: Marcelo García (Nov 24, 2022 05:08:33)
[2022-11-24] MEDS: FORTAZ or TAZICEF VIAL INJ 1 G in NS 100 ML IV 100 ML IV SCH ×3 (05:54→21:09)
[2022-11-24] MEDS: SYNTHROID 88 mcg TAB PO SCH (05:54)
[2022-11-24 05:55] LABS: BASOPHILS % (AUTO) 0.2 % (0.2-1.0); HEMATOCRIT 37.9 % (42.0-54.0); HEMOGLOBIN 12.7 g/dL (13.5-18.0); LYMPHOCYTES # (AUTO) 0.4 X10^3/uL (1.3-2.9); MEAN CORPUSCULAR HEMOGLOBIN 30.5 pg (27.0-34.0); MEAN CORPUSCULAR HGB CONC 33.5 g/dL (33.0-35.0); MEAN CORPUSCULAR VOLUME 91.2 fL (80.0-100.0); MEAN PLATELET VOLUME 10.6 fL (7.4-11.0); MONOCYTES # (AUTO) 0.4 x10^3/uL (0.3-0.8); MONOCYTES % (AUTO) 2.2 % (0.0-13.0); NEUTROPHILS # (AUTO) 17.3 x10^3/uL (2.2-4.8); NEUTROPHILS % (AUTO) 95.6 % (42.0-75.0); RED BLOOD COUNT 4.15 X10^6/uL (4.7-6.0); RED CELL DISTRIBUTION WIDTH 14.5 % (11.6-16.5); WHITE BLOOD COUNT 18.1 X10^3/uL (3.6-10.0)
[2022-11-24 06:16] LABS: ALANINE AMINOTRANSFERASE 27 Units/L (12-78); ALBUMIN 2.4 g/dL (3.4-5.0); ALKALINE PHOSPHATASE 60 Units/L (46-116); ASPARTATE AMINO TRANSFERASE 22 Units/L (15-37); BLOOD UREA NITROGEN 22 mg/dL (7-18); CARBON DIOXIDE 28.9 mmol/L (21-32); CHLORIDE 104 mmol/L (98-107); COR CA(FOR HYPOALB) 9.3 mg/dL (8.5-10.1); COR NA(FOR HYPERGLY) 141 mmol/L (136-145); CREATININE 1.19 mg/dL (0.70-1.30); SODIUM 139 mmol/L (136-145); TOTAL PROTEIN 5.9 g/dL (6.4-8.2); eGFR NON BLACK RACES > 60 (>60)
[2022-11-24 06:45] LABS: PLATELET MORPHOLOGY COMMENT NORMAL (NORMAL)
[2022-11-24] MEDS: NS 1/2 1,000 ML IV 1,000 ML IV SCH ×2 (07:08→21:09)
[2022-11-24] MEDS: VSL#3 PO SCH (08:49)
[2022-11-24] MEDS: ROBITUSSIN DM PO SCH ×4 (08:49→20:41)
[2022-11-24] MEDS: LEVAQUIN PREMIX IV 500 MG 500 MG/100 ML BAG IV SCH (08:49)
[2022-11-24] MEDS: ASPIRIN EC 81 MG PO SCH (08:49)
[2022-11-24] MEDS: LASIX PO SCH (08:49)
[2022-11-24] MEDS: PriLOSEC PO SCH (08:50)
[2022-11-24] MEDS: BUSPAR PO SCH ×2 (08:50→20:41)
[2022-11-24] MEDS: CORDARONE TAB 200 MG PO SCH (08:51)
[2022-11-24] MEDS: ALDACTONE TAB 25 MG PO SCH (08:51)
[2022-11-24] MEDS: COREG TAB 25 MG PO SCH ×2 (08:51→20:41)
[2022-11-24] MEDS: ENTRESTO 24/26 MG TABLET PO SCH ×2 (08:51→20:41)
[2022-11-24] MEDS: LOVENOX INJ 30 MG SYR SC SCH ×2 (08:53→20:42)
[2022-11-24] MEDS: PULMICORT NEB TX 0.5 MG NEB SCH ×2 (09:13→20:00)
[2022-11-24] MEDS: DIFLUCAN 200 MG IV PREMIX* 200 MG/100 ML BAG IV SCH (10:51)
[2022-11-24] MEDS: TUSSIONEX PENNKINETIC SUSP PO SCH ×2 (10:51→21:53)
--- NOTE | 2022-11-24 12:45 | PCM.PROG ---
Progress Note - Progress Note for Day of Date of Exam: 11/24/22 - Subjective Subjective: IS CURRENTLY INPATIENT STATUS FOR TREATMENT OF RIGHT LOWER LOBE PNEUMONIA AND COPD EXACERBATION. ADDITIONALLY, HE HAS A PMH OF HTN, GERD, DYSLIPIDEMIA, HYPOTHYROIDISM. TODAY, HE IS ALERT AND ORIENTED, SITTING UP IN BED ON MORNING ROUNDS. HE CONTINUES TO COMPLAIN OF COUGH AND SHORTNESS OF BREATH, BUT DOES REPORT IMPROVEMENT IN SYMPTOMS SINCE ADMISSION. ON EXAMINATION, HEART IS REGULAR IN RATE AND RHYTHM. BILATERAL LUNGS ARE NOTED WITH RHONCHI AND EXPIRATORY WHEEZES THROUGHOUT. ABDOMEN IS DISTENDED, SOFT, AND NON-TENDER WITH NORMAL BOWEL SOUNDS NOTED IN ALL QUADRANTS. NO UPPER OR LOWER EXTREMITY EDEMA NOTED. HIS VITALS THIS MORNING WERE: 98.0-72-22-92%-117/74. LABS WERE OBTAINED. WBC 18.1, RBC 4.15, HGB 12.7, HCT 37.9, PLT COUNT 153, SODIUM 139, POTASSIUM 4.4, CHLORIDE 104, BUN 22, CREATININE 1.19, GLUCOSE 166, CALCIUM 8.0, AST 22, ALT 27, ALK PHOS 60, TOTAL PROTEIN 5.9, ALBUMIN 2.4. BLOOD AND SPUTUM CULTURES ARE PENDING. SPUTUM CULTURE DOES REPORT GROWTH OF YEAST AND GRAM NEGATIVE RODS. A CHEST XRAY WAS OBTAINED THIS MORNING AND REVEALED: The trachea is midline. Per to pacing device. The cardiac silhouette is unremarkable. Bibasilar subsegmental atelectasis and/or infiltrates. The bony thorax is unremarkable. CHEST CT WITH CONTRAST WAS OBTAINED YESTERDAY AND REVEALED: 1. Findings consistent with bilateral predominantly basilar pneumonia 2. Cholelithiasis. HE IS CURRENTLY RECEIVING NORMAL SALINE AT O, FORTAZ 1G IV Q8H, LEVAQUIN 500MG IV DAILY DUONEBS Q4H, PULMICORT NEBS BID, LOVENOX 30MG SC BID, PROBIOTICS DAILY, ROBITUSSIN DM 10ML QID, SOLU-MEDROL 125MG IV Q8H, AND HIS HOME MEDICATIONS WERE RESUMED. HOME MEDICATIONS INCLUDE: AMIODARONE, ECOTRIN, BUSPIRONE, CARVEDILOL, LASIX, ROBITUSSIN DM, SYNTHROID, PRILOSEC, PRAVACHOL, PREDNISONE, ALDACTONE, AND ENTRESTO. TODAY, WE WILL ADD TUSSIONEX 5ML BID AND DIFLUCAN 200MG IV DAILY. OTHERWISE, WE WILL FOLLOW-UP WITH AM LABS AND CHEST XRAY AND CONTINUE TO MONITOR. TIME SPENT ON CLINICAL ASSESSMENT, REVIWING LABS AND IMAGING, DECISION MAKING, AND DOCUMENTATION GREATER THAN 45 MINUTES. - Past Medical Family Social History Past Med/Fam/Surg Hx: No changes since H&P Allergies: Allergies No Known Drug Allergies Allergy (Verified 05/28/20 11:05) - Review of Systems ROS: No change since H&P - Vital Signs and I&O's Vital Signs: Temperature 97.6 F Pulse Rate [Left Radial] 72 Pulse Rate 66 Respiratory Rate 18 Blood Pressure [Right Arm] 136/69 Blood Pressure [Left Arm] 138/85 Blood Pressure 116/55 O2 Sat by Pulse Oximetry 95 Intake and Output: Intake & Output 11/22/22 11/23/22 11/24/22 11/25/22 11:59 11:59 11:59 11:59 Intake Total 810 / 810 2249 / 2249 2800 / 2800 Balance 810 / 810 2249 / 2249 2800 / 2800 - Physical Exam Oriented: Normal Eyes: Normal Ear: Normal Nose: Normal Throat: Normal Cardiovascular: Normal : Normal Auscultation: Bowel Sounds: Normal Palpation: Normal Tenderness: Normal Skin: Normal Musculoskeletal: Normal Psychiatric: Normal Mood Description: Calm Affect: Normal Speech Pattern: Clear, Appropriate - Laboratory and Diagnostics Result Diagrams: 11/24/22 05:34 11/24/22 05:34 Labs: 11/21/22 23:50 Sputum - Expectorated Sputum Sputum Culture - Preliminary 11/21/22 23:50 Sputum - Expectorated Sputum - Final 11/21/22 21:36 Blood Blood Culture - Preliminary 11/21/22 21:23 Blood Blood Culture - Preliminary Laboratory WBC 18.1 X10^3/uL (3.6-10.0) H 11/24/22 05:34 RBC 4.15 X10^6/uL (4.7-6.0) L 11/24/22 05:34 Hgb 12.7 g/dL (13.5-18.0) L 11/24/22 05:34 Hct 37.9 % (42.0-54.0) L 11/24/22 05:34 MCV 91.2 fL (80.0-100.0) 11/24/22 05:34 MCH 30.5 pg (27.0-34.0) 11/24/22 05:34 MCHC 33.5 g/dL (33.0-35.0) 11/24/22 05:34 RDW 14.5 % (11.6-16.5) 11/24/22 05:34 Plt Count 153 X10^3/uL (150.0-450.0) 11/24/22 05:34 Plt Count Comment Adequate (ADEQUATE) 11/24/22 05:34 MPV 10.6 fL (7.4-11.0) 11/24/22 05:34 Neut % (Auto) 95.6 % (42.0-75.0) H 11/24/22 05:34 Lymph % (Auto) 2.0 % (21.0-51.0) L 11/24/22 05:34 [place] % (Auto) 2.2 % (0.0-13.0) 11/24/22 05:34 Eos % (Auto) 0.0 % (0.9-2.9) L 11/24/22 05:34 Baso % (Auto) 0.2 % (0.2-1.0) 11/24/22 05:34 Neut # (Auto) 17.3 x10^3/uL (2.2-4.8) H 11/24/22 05:34 Lymph # (Auto) 0.4 X10^3/uL (1.3-2.9) L 11/24/22 05:34 [place] # (Auto) 0.4 x10^3/uL (0.3-0.8) 11/24/22 05:34 Eos # (Auto) 0.0 x10^3/uL (0.0-0.2) 11/24/22 05:34 Baso # (Auto) 0.0 X10^3/uL (0.0-0.1) 11/24/22 05:34 Absolute Nucleated RBC 0.0 /100WBC 11/24/22 05:34 Total Counted 100 11/24/22 05:34 Neutrophils % (Manual) 96 % (39-76) H 11/24/22 05:34 Band Neutrophils % 5 % (0-10) 11/23/22 05:41 Lymphocytes % (Manual) 2 % (13-43) L 11/24/22 05:34 Monocytes % (Manual) 2 % (4-9) L 11/24/22 05:34 Metamyelocytes % 1 11/23/22 05:41 Plt Morphology Comment Normal (NORMAL) 11/24/22 05:34 RBC Morphology Normal (NORMAL) 11/24/22 05:34 Sample Site Lr 11/21/22 20:11 ABG pH 7.510 (7.35-7.45) H 11/21/22 20:11 ABG pCO2 34.0 mmHg (35.0-45.0) L 11/21/22 20:11 ABG pO2 53.0 mmHg (80.0-100.0) L 11/21/22 20:11 ABG HCO3 27.1 mmol/L (22-26) H 11/21/22 20:11 ABG O2 Saturation 90.0 % (90-100) 11/21/22 20:11 ABG Base Excess 4.2 mmol/L (-2.0-2.0) H 11/21/22 20:11 Taurus Test Pos 11/21/22 20:11 A-a Gradient 104.0 mmHg 11/21/22 20:11 FiO2 28.0 11/21/22 20:11 Blood Gas Comments Ney well ae 11/21/22 20:11 Sodium 139 mmol/L (136-145) 11/24/22 05:34 Corrected Sodium 141 mmol/L (136-145) 11/24/22 05:34 Potassium 4.4 mmol/L (3.5-5.1) 11/24/22 05:34 Chloride 104 mmol/L (98-107) 11/24/22 05:34 Carbon Dioxide 28.9 mmol/L (21-32) 11/24/22 05:34 BUN 22 mg/dL (7-18) H 11/24/22 05:34 Creatinine 1.19 mg/dL (0.70-1.30) 11/24/22 05:34 Est GFR (MDRD) Af Amer > 60 (>60) 11/24/22 05:34 Est GFR (MDRD) Non-Af > 60 (>60) 11/24/22 05:34 Glucose 166 mg/dL (65-99) H 11/24/22 05:34 Calcium 8.0 mg/dL (8.5-10.1) L 11/24/22 05:34 Corrected Calcium 9.3 mg/dL (8.5-10.1) 11/24/22 05:34 Total Bilirubin 0.50 mg/dL (0.2-1.0) 11/24/22 05:34 AST 22 Units/L (15-37) 11/24/22 05:34 ALT 27 Units/L (12-78) 11/24/22 05:34 Alkaline Phosphatase 60 Units/L (46-116) 11/24/22 05:34 Creatine Kinase 60 Units/L (39-308) 11/21/22 20:00 Troponin I High Sens 9.3 ng/L (4.0-60.0) 11/21/22 20:00 Total Protein 5.9 g/dL (6.4-8.2) L 11/24/22 05:34 Albumin 2.4 g/dL (3.4-5.0) L 11/24/22 05:34 Globulin 3.5 g/dL (2.5-4.5) 11/24/22 05:34 Albumin/Globulin Ratio 0.7 Ratio (1.1-2.1) L 11/24/22 05:34 SARS-CoV-2 (PCR) Negative (NEGATIVE) 11/21/22 19:50 Influenza Type A (PCR) Negative (NEGATIVE) 11/21/22 19:50 Influenza Type B (PCR) Negative (NEGATIVE) 11/21/22 19:50 RSV (PCR) Negative (NEGATIVE) 11/21/22 19:50 SARS-CoV-2 (PCR) Negative 11/22/22 10:05 - Plan (1) Pneumonia Status: Acute Qualifiers: Pneumonia type: due to unspecified organism Laterality: right Lung location: lower lobe of lung Qualified Code(s): J18.9 - Pneumonia, unspecified organism Plan: SUPPLEMENTAL OXYGEN, NORMAL SALINE AT KVO, FORTAZ 1G IV Q8H, LEVAQUIN 500MG IV DAILY, SOLU-MEDROL 125MG IV Q8H, DIFLUCAN 200MG IV DAILY, ROBITUSSIN, TUSSIONEX, DUONEBS Q4H, PULMICORT NEBS BID, LOVENOX 30MG SC BID, PROBIOTICS DAILY, AND HIS HOME MEDICATIONS WERE RESUMED. (2) COPD exacerbation Status: Acute (3) Infection due to yeast Status: Acute (4) HTN (hypertension) Status: Chronic Qualifiers: Hypertension type: primary hypertension Qualified Code(s): I10 - Essential (primary) hypertension (5) GERD (gastroesophageal reflux disease) Status: Chronic Qualifiers: Esophagitis presence: esophagitis presence not specified Qualified Code(s): K21.9 - Gastro-esophageal reflux disease without esophagitis
[2022-11-24] MEDS: PRAVACHOL PO SCH (20:41)
[2022-11-25] MEDS: DUONEB 0.5 MG/3 MG (3 mL) NEB SCH ×7 (00:17→20:30)
--- NOTE | 2022-11-25 04:39 | RAD ---
HISTORYRLL PNEUMONIA, SOB Relevant Clinical InformationSTUDYCHEST, 1 [id number] trachea is midline. Permanent pacing device the cardiac silhouette is unremarkable. Mild bibasilar subsegmental atelectasis. The bony thorax is unremarkable.IMPRESSIONStable portable chest.Electronically signed by: Marcelo García (Nov 25, 2022 04:37:58)
[2022-11-25] MEDS ORDERED: NS 1/2 1,000 ML IV 1,000 ML IV ONE (05:11)
[2022-11-25] MEDS: NS 1/2 1,000 ML IV 1,000 ML IV SCH ×2 (05:30→11:52)
[2022-11-25] MEDS: SOLU-Medrol 125 MG VIAL IVP SCH ×3 (05:30→22:02)
[2022-11-25] MEDS: FORTAZ or TAZICEF VIAL INJ 1 G in NS 100 ML IV 100 ML IV SCH ×3 (05:30→22:02)
[2022-11-25] MEDS: SYNTHROID 88 mcg TAB PO SCH (06:05)
[2022-11-25 06:23] LABS: BASOPHILS % (AUTO) 0.2 % (0.2-1.0); HEMATOCRIT 37.9 % (42.0-54.0); HEMOGLOBIN 12.7 g/dL (13.5-18.0); LYMPHOCYTES # (AUTO) 0.3 X10^3/uL (1.3-2.9); LYMPHOCYTES % (AUTO) 1.8 % (21.0-51.0); MEAN CORPUSCULAR HEMOGLOBIN 30.4 pg (27.0-34.0); MEAN CORPUSCULAR HGB CONC 33.4 g/dL (33.0-35.0); MEAN CORPUSCULAR VOLUME 90.9 fL (80.0-100.0); MEAN PLATELET VOLUME 10.7 fL (7.4-11.0); MONOCYTES # (AUTO) 0.4 x10^3/uL (0.3-0.8); MONOCYTES % (AUTO) 2.6 % (0.0-13.0); NEUTROPHILS # (AUTO) 15.3 x10^3/uL (2.2-4.8); NEUTROPHILS % (AUTO) 95.4 % (42.0-75.0); RED BLOOD COUNT 4.17 X10^6/uL (4.7-6.0)
[2022-11-25 06:41] LABS: ALANINE AMINOTRANSFERASE 25 Units/L (12-78); ALBUMIN 2.3 g/dL (3.4-5.0); ALKALINE PHOSPHATASE 57 Units/L (46-116); ASPARTATE AMINO TRANSFERASE 17 Units/L (15-37); BLOOD UREA NITROGEN 23 mg/dL (7-18); CHLORIDE 104 mmol/L (98-107); COR CA(FOR HYPOALB) 9.4 mg/dL (8.5-10.1); COR NA(FOR HYPERGLY) 140 mmol/L (136-145); CREATININE 1.07 mg/dL (0.70-1.30); SODIUM 138 mmol/L (136-145); TOTAL PROTEIN 5.7 g/dL (6.4-8.2); eGFR NON BLACK RACES > 60 (>60)
[2022-11-25 07:00] LABS: BAND NEUTROPHILS % 1 % (0-10); PLATELET MORPHOLOGY COMMENT NORMAL (NORMAL)
[2022-11-25] MEDS: PULMICORT NEB TX 0.5 MG NEB SCH ×2 (08:29→20:30)
[2022-11-25] MEDS: LEVAQUIN PREMIX IV 500 MG 500 MG/100 ML BAG IV SCH (08:51)
[2022-11-25] MEDS: ENTRESTO 24/26 MG TABLET PO SCH ×2 (08:52→20:34)
[2022-11-25] MEDS: BUSPAR PO SCH ×2 (08:52→20:30)
[2022-11-25] MEDS: ALDACTONE TAB 25 MG PO SCH (08:52)
[2022-11-25] MEDS: VSL#3 PO SCH (08:52)
[2022-11-25] MEDS: PriLOSEC PO SCH (08:52)
[2022-11-25] MEDS: COREG TAB 25 MG PO SCH ×2 (08:52→20:33)
[2022-11-25] MEDS: ROBITUSSIN DM PO SCH ×4 (08:52→20:35)
[2022-11-25] MEDS: CORDARONE TAB 200 MG PO SCH (08:52)
[2022-11-25] MEDS: LASIX PO SCH (08:52)
[2022-11-25] MEDS: ASPIRIN EC 81 MG PO SCH (08:53)
[2022-11-25] MEDS: LOVENOX INJ 30 MG SYR SC SCH ×2 (08:53→20:43)
[2022-11-25] MEDS: MILK OF MAGNESIA PO PRN ×2 (09:56→20:35)
[2022-11-25] MEDS: DIFLUCAN 200 MG IV PREMIX* 200 MG/100 ML BAG IV SCH (09:56)
[2022-11-25] MEDS: TUSSIONEX PENNKINETIC SUSP PO SCH ×2 (09:56→22:10)
[2022-11-25] MEDS: COLACE CAP 100 MG PO PRN ×2 (09:56→20:35)
[2022-11-25] MEDS ORDERED: STERILE WATER IRRIGATION IR ONE (17:20)
[2022-11-25] MEDS ORDERED: PULMICORT NEB TX 0.5 MG NEB ONE (19:17)
[2022-11-25] MEDS: PRAVACHOL PO SCH (20:34)
[2022-11-26] MEDS: DUONEB 0.5 MG/3 MG (3 mL) NEB SCH ×6 (00:20→21:00)
[2022-11-26] MEDS: SOLU-Medrol 125 MG VIAL IVP SCH ×3 (05:37→21:39)
[2022-11-26] MEDS: NS 1/2 1,000 ML IV 1,000 ML IV SCH ×2 (05:37→16:09)
[2022-11-26] MEDS: FORTAZ or TAZICEF VIAL INJ 1 G in NS 100 ML IV 100 ML IV SCH ×3 (05:37→21:40)
[2022-11-26] MEDS: SYNTHROID 88 mcg TAB PO SCH (05:38)
--- NOTE | 2022-11-26 05:52 | RAD ---
HISTORYSOBSTUDYCHEST, 1 [id number] opacity in the lung basis could be atelectasis or pneumonia. Not much change from yesterday.Middle and upper lungs are clear.Heart size is normal.Bones are unremarkable.Left subclavian ICD is present with leads in expected location.IMPRESSION1. Unchanged basilar atelectasis or pneumoniaElectronically signed by: Jimmy Nieto (Nov 26, 2022 05:51:25)
[2022-11-26 06:24] LABS: BASOPHILS % (AUTO) 0.1 % (0.2-1.0); HEMOGLOBIN 12.8 g/dL (13.5-18.0); LYMPHOCYTES # (AUTO) 0.2 X10^3/uL (1.3-2.9); MONOCYTES # (AUTO) 0.5 x10^3/uL (0.3-0.8); MONOCYTES % (AUTO) 3.2 % (0.0-13.0)
[2022-11-26 06:33] LABS: ALANINE AMINOTRANSFERASE 26 Units/L (12-78); ALBUMIN 2.3 g/dL (3.4-5.0); ALKALINE PHOSPHATASE 56 Units/L (46-116); ASPARTATE AMINO TRANSFERASE 20 Units/L (15-37); BLOOD UREA NITROGEN 27 mg/dL (7-18); CALCIUM 8.3 mg/dL (8.5-10.1); CARBON DIOXIDE 28.7 mmol/L (21-32); CHLORIDE 102 mmol/L (98-107); COR CA(FOR HYPOALB) 9.7 mg/dL (8.5-10.1); COR NA(FOR HYPERGLY) 138 mmol/L (136-145); CREATININE 1.08 mg/dL (0.70-1.30); LYMPHOCYTES % (AUTO) 1.2 % (21.0-51.0); MEAN CORPUSCULAR HEMOGLOBIN 30.9 pg (27.0-34.0); MEAN CORPUSCULAR HGB CONC 33.6 g/dL (33.0-35.0); MEAN CORPUSCULAR VOLUME 91.8 fL (80.0-100.0); MEAN PLATELET VOLUME 10.5 fL (7.4-11.0); NEUTROPHILS # (AUTO) 14.8 x10^3/uL (2.2-4.8); NEUTROPHILS % (AUTO) 95.5 % (42.0-75.0); RED BLOOD COUNT 4.14 X10^6/uL (4.7-6.0); RED CELL DISTRIBUTION WIDTH 14.1 % (11.6-16.5); SODIUM 136 mmol/L (136-145); TOTAL PROTEIN 5.6 g/dL (6.4-8.2); WHITE BLOOD COUNT 15.5 X10^3/uL (3.6-10.0); eGFR NON BLACK RACES > 60 (>60)
[2022-11-26 07:11] LABS: PLATELET MORPHOLOGY COMMENT NORMAL (NORMAL)
[2022-11-26] MEDS: VSL#3 PO SCH (08:34)
[2022-11-26] MEDS: DIFLUCAN 200 MG IV PREMIX* 200 MG/100 ML BAG IV SCH (08:34)
[2022-11-26] MEDS: LEVAQUIN PREMIX IV 500 MG 500 MG/100 ML BAG IV SCH (08:34)
[2022-11-26] MEDS: ENTRESTO 24/26 MG TABLET PO SCH ×2 (08:35→21:42)
[2022-11-26] MEDS: ASPIRIN EC 81 MG PO SCH (08:35)
[2022-11-26] MEDS: ROBITUSSIN DM PO SCH ×4 (08:35→21:39)
[2022-11-26] MEDS: PriLOSEC PO SCH (08:35)
[2022-11-26] MEDS: COREG TAB 25 MG PO SCH ×2 (08:35→21:41)
[2022-11-26] MEDS: LASIX PO SCH (08:36)
[2022-11-26] MEDS: ALDACTONE TAB 25 MG PO SCH (08:36)
[2022-11-26] MEDS: CORDARONE TAB 200 MG PO SCH (08:46)
[2022-11-26] MEDS: PULMICORT NEB TX 0.5 MG NEB SCH ×2 (08:50→21:00)
[2022-11-26] MEDS: BUSPAR PO SCH ×2 (09:06→21:41)
[2022-11-26] MEDS: LOVENOX INJ 30 MG SYR SC SCH ×2 (09:55→21:40)
[2022-11-26] MEDS: TUSSIONEX PENNKINETIC SUSP PO SCH ×2 (09:55→21:39)
[2022-11-26] MEDS: MILK OF MAGNESIA PO PRN (21:39)
[2022-11-26] MEDS: MIRALAX POWDER (1 DOSE 17 G) PO SCH (21:39)
[2022-11-26] MEDS: PRAVACHOL PO SCH (21:41)
[2022-11-26] MEDS: COLACE CAP 100 MG PO PRN (21:41)
[2022-11-27] MEDS: DUONEB 0.5 MG/3 MG (3 mL) NEB SCH ×6 (00:15→21:20)
[2022-11-27] MEDS ORDERED: NS 1/2 1,000 ML IV 1,000 ML IV ONE (00:52)
[2022-11-27] MEDS: NS 1/2 1,000 ML IV 1,000 ML IV SCH ×3 (01:37→21:04)
[2022-11-27 04:59] LABS: BASOPHILS % (AUTO) 0.2 % (0.2-1.0); HEMATOCRIT 38.4 % (42.0-54.0); LYMPHOCYTES # (AUTO) 0.2 X10^3/uL (1.3-2.9); LYMPHOCYTES % (AUTO) 1.1 % (21.0-51.0); MEAN CORPUSCULAR HEMOGLOBIN 30.8 pg (27.0-34.0); MEAN CORPUSCULAR HGB CONC 33.8 g/dL (33.0-35.0); MEAN CORPUSCULAR VOLUME 91.3 fL (80.0-100.0); MEAN PLATELET VOLUME 9.9 fL (7.4-11.0); MONOCYTES # (AUTO) 0.4 x10^3/uL (0.3-0.8); MONOCYTES % (AUTO) 2.4 % (0.0-13.0); NEUTROPHILS # (AUTO) 17.1 x10^3/uL (2.2-4.8); NEUTROPHILS % (AUTO) 96.3 % (42.0-75.0); RED CELL DISTRIBUTION WIDTH 14.1 % (11.6-16.5); WHITE BLOOD COUNT 17.7 X10^3/uL (3.6-10.0)
[2022-11-27 05:17] LABS: ALANINE AMINOTRANSFERASE 28 Units/L (12-78); ALBUMIN 2.4 g/dL (3.4-5.0); ALKALINE PHOSPHATASE 59 Units/L (46-116); ASPARTATE AMINO TRANSFERASE 21 Units/L (15-37); BLOOD UREA NITROGEN 27 mg/dL (7-18); CALCIUM 8.2 mg/dL (8.5-10.1); CHLORIDE 100 mmol/L (98-107); COR CA(FOR HYPOALB) 9.5 mg/dL (8.5-10.1); COR NA(FOR HYPERGLY) 136 mmol/L (136-145); CREATININE 1.05 mg/dL (0.70-1.30); SODIUM 134 mmol/L (136-145); TOTAL PROTEIN 5.5 g/dL (6.4-8.2); eGFR NON BLACK RACES > 60 (>60)
[2022-11-27] MEDS: FORTAZ or TAZICEF VIAL INJ 1 G in NS 100 ML IV 100 ML IV SCH ×3 (05:38→21:03)
[2022-11-27] MEDS: SOLU-Medrol 125 MG VIAL IVP SCH ×3 (05:38→21:04)
[2022-11-27] MEDS: SYNTHROID 88 mcg TAB PO SCH (05:44)
[2022-11-27 05:47] LABS: BAND NEUTROPHILS % 1 % (0-10); METAMYELOCYTES % 1; PLATELET MORPHOLOGY COMMENT NORMAL (NORMAL)
[2022-11-27] MEDS: VSL#3 PO SCH (08:37)
[2022-11-27] MEDS: ENTRESTO 24/26 MG TABLET PO SCH ×2 (08:37→20:55)
[2022-11-27] MEDS: LASIX PO SCH (08:38)
[2022-11-27] MEDS: CORDARONE TAB 200 MG PO SCH (08:39)
[2022-11-27] MEDS: ASPIRIN EC 81 MG PO SCH (08:41)
[2022-11-27] MEDS: ALDACTONE TAB 25 MG PO SCH (08:41)
[2022-11-27] MEDS: LEVAQUIN PREMIX IV 500 MG 500 MG/100 ML BAG IV SCH (08:41)
[2022-11-27] MEDS: COREG TAB 25 MG PO SCH ×2 (08:41→20:56)
[2022-11-27] MEDS: DIFLUCAN 200 MG IV PREMIX* 200 MG/100 ML BAG IV SCH (08:41)
[2022-11-27] MEDS: PriLOSEC PO SCH (08:41)
[2022-11-27] MEDS: LOVENOX INJ 30 MG SYR SC SCH ×2 (08:41→20:57)
[2022-11-27] MEDS: MILK OF MAGNESIA PO PRN ×2 (08:42→20:55)
[2022-11-27] MEDS: COLACE CAP 100 MG PO PRN ×2 (08:42→20:56)
[2022-11-27] MEDS: BUSPAR PO SCH ×2 (08:44→20:56)
[2022-11-27] MEDS: PULMICORT NEB TX 0.5 MG NEB SCH ×2 (09:00→21:20)
--- NOTE | 2022-11-27 09:59 | RAD ---
HISTORYLeft lower lobe pneumoniaSTUDYAP chestCOMPARISONFebruary 2022FINDINGSHeart size normal with stable twin lead pacemaker. Slight interval improvement in appearance of the lung bases with only minimal residual atelectasis. No new abnormality noted.IMPRESSIONSlight interval improvement with no additional abnormality identified since 1 day prior.Electronically signed by: JOAO ANDREWS (Nov 27, 2022 09:58:11)
[2022-11-27] MEDS: TUSSIONEX PENNKINETIC SUSP PO SCH ×2 (10:21→21:03)
[2022-11-27] MEDS: ROBITUSSIN DM PO SCH ×4 (10:22→20:55)
[2022-11-27] MEDS ORDERED: LINZESS PO ONE (20:42)
[2022-11-27] MEDS: MIRALAX POWDER (1 DOSE 17 G) PO SCH (20:55)
[2022-11-27] MEDS: PRAVACHOL PO SCH (20:56)
[2022-11-28] MEDS: DUONEB 0.5 MG/3 MG (3 mL) NEB SCH ×6 (00:42→21:35)
[2022-11-28] MEDS: FORTAZ or TAZICEF VIAL INJ 1 G in NS 100 ML IV 100 ML IV SCH ×3 (05:33→21:33)
[2022-11-28] MEDS: SYNTHROID 88 mcg TAB PO SCH (05:33)
[2022-11-28] MEDS: SOLU-Medrol 125 MG VIAL IVP SCH ×3 (05:33→21:21)
[2022-11-28 06:05] LABS: BASOPHILS % (AUTO) 0.1 % (0.2-1.0); HEMATOCRIT 36.4 % (42.0-54.0); HEMOGLOBIN 12.3 g/dL (13.5-18.0); LYMPHOCYTES # (AUTO) 0.2 X10^3/uL (1.3-2.9); LYMPHOCYTES % (AUTO) 1.3 % (21.0-51.0); MEAN CORPUSCULAR HEMOGLOBIN 30.7 pg (27.0-34.0); MEAN CORPUSCULAR HGB CONC 33.8 g/dL (33.0-35.0); MEAN CORPUSCULAR VOLUME 90.7 fL (80.0-100.0); MEAN PLATELET VOLUME 10.5 fL (7.4-11.0); MONOCYTES # (AUTO) 0.4 x10^3/uL (0.3-0.8); MONOCYTES % (AUTO) 2.5 % (0.0-13.0); NEUTROPHILS # (AUTO) 13.8 x10^3/uL (2.2-4.8); NEUTROPHILS % (AUTO) 96.1 % (42.0-75.0); RED BLOOD COUNT 4.01 X10^6/uL (4.7-6.0); RED CELL DISTRIBUTION WIDTH 13.7 % (11.6-16.5); WHITE BLOOD COUNT 14.3 X10^3/uL (3.6-10.0)
[2022-11-28 06:22] LABS: ALANINE AMINOTRANSFERASE 31 Units/L (12-78); ALBUMIN 2.1 g/dL (3.4-5.0); ALKALINE PHOSPHATASE 49 Units/L (46-116); ASPARTATE AMINO TRANSFERASE 19 Units/L (15-37); BLOOD UREA NITROGEN 25 mg/dL (7-18); CALCIUM 7.9 mg/dL (8.5-10.1); CARBON DIOXIDE 32.5 mmol/L (21-32); CHLORIDE 102 mmol/L (98-107); COR CA(FOR HYPOALB) 9.4 mg/dL (8.5-10.1); COR NA(FOR HYPERGLY) 137 mmol/L (136-145); CREATININE 1.02 mg/dL (0.70-1.30); SODIUM 135 mmol/L (136-145); TOTAL PROTEIN 4.9 g/dL (6.4-8.2); eGFR NON BLACK RACES > 60 (>60)
[2022-11-28 06:31] LABS: BAND NEUTROPHILS % 2 % (0-10)
[2022-11-28 06:32] LABS: PLATELET MORPHOLOGY COMMENT NORMAL (NORMAL)
[2022-11-28] MEDS: LEVAQUIN PREMIX IV 500 MG 500 MG/100 ML BAG IV SCH (08:31)
[2022-11-28] MEDS: CORDARONE TAB 200 MG PO SCH (08:32)
[2022-11-28] MEDS: DIFLUCAN 200 MG IV PREMIX* 200 MG/100 ML BAG IV SCH (08:32)
[2022-11-28] MEDS: ENTRESTO 24/26 MG TABLET PO SCH ×2 (08:33→21:23)
[2022-11-28] MEDS: ASPIRIN EC 81 MG PO SCH (08:33)
[2022-11-28] MEDS: LOVENOX INJ 30 MG SYR SC SCH ×2 (08:33→21:25)
[2022-11-28] MEDS: ALDACTONE TAB 25 MG PO SCH (08:33)
[2022-11-28] MEDS: ROBITUSSIN DM PO SCH ×4 (08:33→21:25)
[2022-11-28] MEDS: BUSPAR PO SCH ×2 (08:34→21:28)
[2022-11-28] MEDS: PriLOSEC PO SCH (08:34)
[2022-11-28] MEDS: LASIX PO SCH (08:34)
[2022-11-28] MEDS: COREG TAB 25 MG PO SCH ×2 (08:34→21:23)
[2022-11-28] MEDS: VSL#3 PO SCH (08:35)
[2022-11-28] MEDS: PULMICORT NEB TX 0.5 MG NEB SCH ×2 (08:40→21:35)
--- NOTE | 2022-11-28 08:59 | PCM.PROG ---
Progress Note - Progress Note for Day of Date of Exam: 11/25/22 - Subjective Subjective: IS CURRENTLY INPATIENT STATUS FOR TREATMENT OF RIGHT LOWER LOBE PNEUMONIA AND COPD EXACERBATION. ADDITIONALLY, HE HAS A PMH OF HTN, GERD, DYSLIPIDEMIA, HYPOTHYROIDISM, AND BRONCHIECTASIS. TODAY, HE IS ALERT AND ORIENTED, SITTING UP IN BED ON MORNING ROUNDS. HE CONTINUES TO COMPLAIN OF COUGH AND SHORTNESS OF BREATH, BUT DOES REPORT IMPROVEMENT IN SYMPTOMS SINCE ADMISSION. ON EXAMINATION, HEART IS REGULAR IN RATE AND RHYTHM. BILATERAL LUNGS ARE NOTED WITH RHONCHI AND EXPIRATORY WHEEZES THROUGHOUT. ABDOMEN IS DISTENDED, SOFT, AND NON-TENDER WITH NORMAL BOWEL SOUNDS NOTED IN ALL QUADRANTS. NO UPPER OR LOWER EXTREMITY EDEMA NOTED. HIS VITALS THIS MORNING WERE: 97.4-71-20-92%-116/69. LABS WERE OBTAINED. WBC 16.0, RBC 4.17, HGB 12.7, HCT 37.9, PLT COUNT 143, SODIUM 138, POTASSIUM 4.2, CHLORIDE 104, BUN 23, CREATININE 1.07, GLUCOSE 177, CALCIUM 8.0, AST 17, ALT 25, ALK PHOS 57, TOTAL PROTEIN 5.7, ALBUMIN 2.3. BLOOD CULTURES ARE NEGATIVE. SPUTUM CULTURES ARE POSITIVE FOR GROWTH OF PSEUDOMONAS AERUGINOSA AND YOGESH ALBICANS. A CHEST XRAY WAS OBTAINED THIS MORNING AND REVEALED: The trachea is midline. Permanent pacing device the cardiac silhouette is unremarkable. Mild bibasilar subsegmental atelectasis. The bony thorax is unremarkable. CHEST CT WITH CONTRAST WAS OBTAINED MONDAY AND REVEALED: 1. Findings consistent with bilateral predominantly basilar pneumonia 2. Cholelithiasis. HE IS CURRENTLY RECEIVING NORMAL SALINE AT KVO, FORTAZ 1G IV Q8H, LEVAQUIN 500MG IV DAILY DUONEBS Q4H, DIFLUCAN 200MG IV DAILY, TUSSIONEX 5ML BID, PULMICORT NEBS BID, LOVENOX 30MG SC BID, PROBIOTICS DAILY, ROBITUSSIN DM 10ML QID, SOLU-MEDROL 125MG IV Q8H, AND HIS HOME MEDICATIONS WERE RESUMED. HOME MEDICATIONS INCLUDE: AMIODARONE, ECOTRIN, BUSPIRONE, CARVEDILOL, LASIX, ROBITUSSIN DM, SYNTHROID, PRILOSEC, PRAVACHOL, PREDNISONE, ALDACTONE, AND ENTRESTO. WE WILL CONTINUE WITH CURRENT PLAN OF CARE TODAY. OTHERWISE, WE WILL FOLLOW-UP WITH AM LABS AND CHEST XRAY AND CONTINUE TO MONITOR. TIME SPENT ON CLINICAL ASSESSMENT, REVIWING LABS AND IMAGING, DECISION MAKING, AND DOCUMENTATION GREATER THAN 45 MINUTES. - Past Medical Family Social History Past Med/Fam/Surg Hx: No changes since H&P Allergies: Allergies No Known Drug Allergies Allergy (Verified 05/28/20 11:05) - Review of Systems ROS: No change since H&P - Vital Signs and I&O's Vital Signs: Temperature 98.3 F Pulse Rate [Right Brachial] 58 Pulse Rate [Left Radial] 72 Pulse Rate 58 Respiratory Rate 16 Blood Pressure [Right Arm] 111/58 Blood Pressure [Left Arm] 138/85 Blood Pressure 116/55 O2 Sat by Pulse Oximetry 97 Intake and Output: Intake & Output 11/25/22 11/26/22 11/27/22 11/28/22 11:59 11:59 11:59 11:59 Intake Total 2556 / 2556 3364 / 3364 2893 / 2893 3951 / 3951 Balance 2556 / 2556 3364 / 3364 2893 / 2893 3951 / 3951 - Physical Exam Oriented: Normal Eyes: Normal Ear: Normal Nose: Normal Throat: Normal Respiratory: Wheezes, Rhonchi Cardiovascular: Normal : Normal Auscultation: Bowel Sounds: Normal Palpation: Normal Tenderness: Normal Skin: Normal Musculoskeletal: Normal Psychiatric: Normal Mood Description: Calm Affect: Normal Speech Pattern: Clear, Appropriate - Laboratory and Diagnostics Result Diagrams: 11/28/22 05:09 11/28/22 05:09 Labs: 11/21/22 23:50 Sputum - Expectorated Sputum Sputum Culture - Preliminary Pseudomonas Aeruginosa Yogesh Albicans 11/21/22 23:50 Sputum - Expectorated Sputum - Final 11/21/22 21:36 Blood Blood Culture - Final 11/21/22 21:23 Blood Blood Culture - Final Laboratory WBC 14.3 X10^3/uL (3.6-10.0) H 11/28/22 05:09 RBC 4.01 X10^6/uL (4.7-6.0) L 11/28/22 05:09 Hgb 12.3 g/dL (13.5-18.0) L 11/28/22 05:09 Hct 36.4 % (42.0-54.0) L 11/28/22 05:09 MCV 90.7 fL (80.0-100.0) 11/28/22 05:09 MCH 30.7 pg (27.0-34.0) 11/28/22 05:09 MCHC 33.8 g/dL (33.0-35.0) 11/28/22 05:09 RDW 13.7 % (11.6-16.5) 11/28/22 05:09 Plt Count 127 X10^3/uL (150.0-450.0) L 11/28/22 05:09 Plt Count Comment Decreased (ADEQUATE) 11/28/22 05:09 MPV 10.5 fL (7.4-11.0) 11/28/22 05:09 Neut % (Auto) 96.1 % (42.0-75.0) H 11/28/22 05:09 Lymph % (Auto) 1.3 % (21.0-51.0) L 11/28/22 05:09 [place] % (Auto) 2.5 % (0.0-13.0) 11/28/22 05:09 Eos % (Auto) 0.0 % (0.9-2.9) L 11/28/22 05:09 Baso % (Auto) 0.1 % (0.2-1.0) L 11/28/22 05:09 Neut # (Auto) 13.8 x10^3/uL (2.2-4.8) H 11/28/22 05:09 Lymph # (Auto) 0.2 X10^3/uL (1.3-2.9) L 11/28/22 05:09 [place] # (Auto) 0.4 x10^3/uL (0.3-0.8) 11/28/22 05:09 Eos # (Auto) 0.0 x10^3/uL (0.0-0.2) 11/28/22 05:09 Baso # (Auto) 0.0 X10^3/uL (0.0-0.1) 11/28/22 05:09 Absolute Nucleated RBC 0.0 /100WBC 11/28/22 05:09 Total Counted 100 11/28/22 05:09 Neutrophils % (Manual) 96 % (39-76) H 11/28/22 05:09 Band Neutrophils % 2 % (0-10) 11/28/22 05:09 Lymphocytes % (Manual) 1 % (13-43) L 11/28/22 05:09 Monocytes % (Manual) 1 % (4-9) L 11/28/22 05:09 Metamyelocytes % 1 11/27/22 04:25 Plt Morphology Comment Normal (NORMAL) 11/28/22 05:09 RBC Morphology Normal (NORMAL) 11/28/22 05:09 Sample Site Lr 11/21/22 20:11 ABG pH 7.510 (7.35-7.45) H 11/21/22 20:11 ABG pCO2 34.0 mmHg (35.0-45.0) L 11/21/22 20:11 ABG pO2 53.0 mmHg (80.0-100.0) L 11/21/22 20:11 ABG HCO3 27.1 mmol/L (22-26) H 11/21/22 20:11 ABG O2 Saturation 90.0 % (90-100) 11/21/22 20:11 ABG Base Excess 4.2 mmol/L (-2.0-2.0) H 11/21/22 20:11 Taurus Test Pos 11/21/22 20:11 A-a Gradient 104.0 mmHg 11/21/22 20:11 FiO2 28.0 11/21/22 20:11 Blood Gas Comments Ney well ae 11/21/22 20:11 Sodium 135 mmol/L (136-145) L 11/28/22 05:09 Corrected Sodium 137 mmol/L (136-145) 11/28/22 05:09 Potassium 5.1 mmol/L (3.5-5.1) 11/28/22 05:09 Chloride 102 mmol/L (98-107) 11/28/22 05:09 Carbon Dioxide 32.5 mmol/L (21-32) H 11/28/22 05:09 BUN 25 mg/dL (7-18) H 11/28/22 05:09 Creatinine 1.02 mg/dL (0.70-1.30) 11/28/22 05:09 Est GFR (MDRD) Af Amer > 60 (>60) 11/28/22 05:09 Est GFR (MDRD) Non-Af > 60 (>60) 11/28/22 05:09 Glucose 171 mg/dL (65-99) H 11/28/22 05:09 Calcium 7.9 mg/dL (8.5-10.1) L 11/28/22 05:09 Corrected Calcium 9.4 mg/dL (8.5-10.1) 11/28/22 05:09 Total Bilirubin 0.60 mg/dL (0.2-1.0) 11/28/22 05:09 AST 19 Units/L (15-37) 11/28/22 05:09 ALT 31 Units/L (12-78) 11/28/22 05:09 Alkaline Phosphatase 49 Units/L (46-116) 11/28/22 05:09 Creatine Kinase 60 Units/L (39-308) 11/21/22 20:00 Troponin I High Sens 9.3 ng/L (4.0-60.0) 11/21/22 20:00 Total Protein 4.9 g/dL (6.4-8.2) L 11/28/22 05:09 Albumin 2.1 g/dL (3.4-5.0) L 11/28/22 05:09 Globulin 2.8 g/dL (2.5-4.5) 11/28/22 05:09 Albumin/Globulin Ratio 0.8 Ratio (1.1-2.1) L 11/28/22 05:09 SARS-CoV-2 (PCR) Negative (NEGATIVE) 11/21/22 19:50 Influenza Type A (PCR) Negative (NEGATIVE) 11/21/22 19:50 Influenza Type B (PCR) Negative (NEGATIVE) 11/21/22 19:50 RSV (PCR) Negative (NEGATIVE) 11/21/22 19:50 SARS-CoV-2 (PCR) Negative 11/22/22 10:05 - Plan (1) Pneumonia Status: Acute Qualifiers: Pneumonia type: due to unspecified organism Laterality: right Lung location: lower lobe of lung Qualified Code(s): J18.9 - Pneumonia, unspecified organism Plan: SUPPLEMENTAL OXYGEN, NORMAL SALINE AT KVO, FORTAZ 1G IV Q8H, LEVAQUIN 500MG IV DAILY, SOLU-MEDROL 125MG IV Q8H, DIFLUCAN 200MG IV DAILY, ROBITUSSIN, TUSSIONEX, DUONEBS Q4H, PULMICORT NEBS BID, LOVENOX 30MG SC BID, PROBIOTICS DAILY, AND HIS HOME MEDICATIONS WERE RESUMED. (2) COPD exacerbation Status: Acute (3) Infection due to yeast Status: Acute (4) HTN (hypertension) Status: Chronic Qualifiers: Hypertension type: primary hypertension Qualified Code(s): I10 - Essential (primary) hypertension (5) GERD (gastroesophageal reflux disease) Status: Chronic Qualifiers: Esophagitis presence: esophagitis presence not specified Qualified Code(s): K21.9 - Gastro-esophageal reflux disease without esophagitis
[2022-11-28] MEDS: NS 1/2 1,000 ML IV 1,000 ML IV SCH ×2 (10:21→22:54)
[2022-11-28] MEDS: ALBUMIN HUMAN 25%- 100 ML 100 ML IV SCH (10:39)
[2022-11-28] MEDS: TUSSIONEX PENNKINETIC SUSP PO SCH ×2 (10:39→21:25)
[2022-11-28] MEDS ORDERED: NS 1/2 1,000 ML IV 1,000 ML IV ONE (17:08)
[2022-11-28] MEDS: PRAVACHOL PO SCH (21:22)
[2022-11-28] MEDS: COLACE CAP 100 MG PO PRN (21:24)
[2022-11-28] MEDS: MIRALAX POWDER (1 DOSE 17 G) PO SCH (21:26)
[2022-11-29] MEDS: DUONEB 0.5 MG/3 MG (3 mL) NEB SCH ×3 (00:46→09:33)
[2022-11-29] MEDS: SOLU-Medrol 125 MG VIAL IVP SCH (05:25)
[2022-11-29] MEDS: FORTAZ or TAZICEF VIAL INJ 1 G in NS 100 ML IV 100 ML IV SCH (05:26)
[2022-11-29] MEDS: SYNTHROID 88 mcg TAB PO SCH (05:37)
--- NOTE | 2022-11-29 06:10 | RAD ---
HISTORYRLL PNEUMONIA, SOBSTUDYCHEST, 1 [id number] cardiomediastinal silhouette is stable. Left-sided pacer and pacer wires unchanged. No acute airspace disease. No pneumothorax or effusion. The bony thorax appears intact.IMPRESSIONNo acute cardiopulmonary disease.Electronically signed by: NJ CAMPOVERDE (Nov 29, 2022 06:09:15)
[2022-11-29 06:25] LABS: ALANINE AMINOTRANSFERASE 27 Units/L (12-78); ALBUMIN 2.3 g/dL (3.4-5.0); ALKALINE PHOSPHATASE 49 Units/L (46-116); ASPARTATE AMINO TRANSFERASE 18 Units/L (15-37); BLOOD UREA NITROGEN 21 mg/dL (7-18); CALCIUM 7.6 mg/dL (8.5-10.1); CARBON DIOXIDE 27.7 mmol/L (21-32); CHLORIDE 103 mmol/L (98-107); COR NA(FOR HYPERGLY) 136 mmol/L (136-145); CREATININE 0.88 mg/dL (0.70-1.30); SODIUM 134 mmol/L (136-145); TOTAL PROTEIN 4.8 g/dL (6.4-8.2); eGFR NON BLACK RACES > 60 (>60)
[2022-11-29 06:31] LABS: BASOPHILS % (AUTO) 0.1 % (0.2-1.0); HEMATOCRIT 34.5 % (42.0-54.0); HEMOGLOBIN 11.7 g/dL (13.5-18.0); LYMPHOCYTES # (AUTO) 0.2 X10^3/uL (1.3-2.9); LYMPHOCYTES % (AUTO) 1.2 % (21.0-51.0); MEAN CORPUSCULAR HEMOGLOBIN 30.9 pg (27.0-34.0); MEAN CORPUSCULAR VOLUME 91.1 fL (80.0-100.0); MEAN PLATELET VOLUME 10.7 fL (7.4-11.0); MONOCYTES # (AUTO) 0.4 x10^3/uL (0.3-0.8); MONOCYTES % (AUTO) 3.4 % (0.0-13.0); NEUTROPHILS % (AUTO) 95.3 % (42.0-75.0); RED BLOOD COUNT 3.79 X10^6/uL (4.7-6.0); RED CELL DISTRIBUTION WIDTH 13.6 % (11.6-16.5); WHITE BLOOD COUNT 12.7 X10^3/uL (3.6-10.0)
[2022-11-29 06:55] LABS: PLATELET MORPHOLOGY COMMENT NORMAL (NORMAL)
--- NOTE | 2022-11-29 08:24 | RAD ---
HISTORYShortness of breath, right lower lobe pneumoniaSTUDYChest AP [id number]/23FINDINGSHeart size is normal. [place] are normal. Lung fournier are clear. No pleural effusions are identified. Bony thorax is unremarkable. There is a pacemaker present on the left.IMPRESSIONLungs clearElectronically signed by: NJ CAMPOVERDE (Nov 29, 2022 08:24:04)
[2022-11-29] MEDS: ALBUMIN HUMAN 25%- 100 ML 100 ML IV SCH (09:20)
[2022-11-29] MEDS: VSL#3 PO SCH (09:22)
[2022-11-29] MEDS: ENTRESTO 24/26 MG TABLET PO SCH (09:22)
[2022-11-29] MEDS: PriLOSEC PO SCH (09:22)
[2022-11-29] MEDS: ASPIRIN EC 81 MG PO SCH (09:23)
[2022-11-29] MEDS: ALDACTONE TAB 25 MG PO SCH (09:23)
[2022-11-29] MEDS: LASIX PO SCH (09:23)
[2022-11-29] MEDS: COREG TAB 25 MG PO SCH (09:24)
[2022-11-29] MEDS: CORDARONE TAB 200 MG PO SCH (09:24)
[2022-11-29] MEDS: BUSPAR PO SCH (09:24)
[2022-11-29] MEDS: LOVENOX INJ 30 MG SYR SC SCH (09:25)
[2022-11-29] MEDS: ROBITUSSIN DM PO SCH ×2 (09:26→13:05)
[2022-11-29] MEDS: PULMICORT NEB TX 0.5 MG NEB SCH (09:33)
[2022-11-29] MEDS: TUSSIONEX PENNKINETIC SUSP PO SCH (09:37)
[2022-11-29] MEDS: DIFLUCAN 200 MG IV PREMIX* 200 MG/100 ML BAG IV SCH (10:06)
[2022-11-29 10:45] VITALS: BMI 30.8
[2022-11-29] MEDS: LEVAQUIN PREMIX IV 500 MG 500 MG/100 ML BAG IV SCH (11:14)
[2022-11-29 12:09] VITALS: BP 161/74
[2022-11-29] MEDS: NS 1/2 1,000 ML IV 1,000 ML IV SCH (12:51)
== END 2022-11-29 13:30 | disposition home health service (06) | DRG 178 ==
LOC: ER 19:24 → MED/SURG 22:41
PROVIDERS: ADMIT Obstetrics & Gynecology Obstetrics; ATTEND Internal Medicine